=== PATIENT | male | born 1990 | race Caucasian/White ===

== ENCOUNTER 2022-11-08 19:39 | Emergency (ER) | payer OTHER ==
[2022-11-08] MEDS ORDERED: Ondansetron 4 MG Tab.DIS PO ONE ×2 (19:40→20:08)
[2022-11-08] MEDS ORDERED: Ondansetron 4 MG Tab.DIS ONE (20:05)
[2022-11-08] MEDS ORDERED: Ketorolac 30 MG/ML SDV IM ONE (20:12)
[2022-11-08] MEDS: Promethazine 25 MG/ML SDV IM ONE ×2 (20:17→20:20)
[2022-11-08 20:49] LABS: ESTIMATED GFR 76 mL/min (>60)
[2022-11-08] MEDS ORDERED: Sodium Chloride 0.9% 1,000 ML IV ONE ×2 (21:45→23:05)
[2022-11-08] MEDS ORDERED: Piperacillin/Tazobactam 3.375 GM in Sodium Chloride 0.9% 50 ML IV SCH (22:00)
== END 2022-11-09 00:35 | disposition home or self-care (01) ==
LOC: FB.ED 19:39
DX: K52.9 Noninfective gastroenteritis and colitis, unspecified (principal)
CPT/HCPCS: 36415; 80053; 83605; 85025; 86140; 87040; 96360; 96361; 96372; 99283; 99284-25; J1885; J2543; J2550; J7030; Q0162